=== PATIENT | male | born 1985 | race Caucasian/White ===

== ENCOUNTER 2017-02-07 14:00 | Inpatient (IN) | payer OTHER ==
--- NOTE | ~2017-02-07 | HP ---
Unit #: [id number] #: [id number] Patient: NELSY MORALES [id number] [place] [address] [id number] I MR#: [id number] NAME: NELSY MORALES ROOM: P204 Age: 31 Sex: M Admission Date: 02/07/2017 : 1985 Attending Physician: Tho Jarrell M.D. Admitting Physician: Tho Jarrell M.D. Primary Care Physician: Primary Care Physician No HISTORY AND PHYSICAL HISTORY OF PRESENT ILLNESS Nelsy is a 31 year old admitted to [address] [place] [address] because of his drug use which includes methamphetamines. PAST MEDICAL HISTORY 1. History of illicit substance abuse to include methamphetamine and heroin. 2. Asthma. PAST SURGICAL HISTORY Nothing reported ALLERGIES No known drug allergies. SOCIAL HISTORY He denies cigarettes and alcohol. Admits to a history of illicit substance abuse to include heroin, methamphetamine and occasional benzodiazepines. FAMILY HISTORY Medically noncontributory. REVIEW OF SYSTEMS CONSTITUTIONAL: No fever or chills. HEENT: Denies any sore throat, ear pain or runny nose. CARDIOVASCULAR: Denies chest pain, irregular heart rhythm or palpitations. CHEST: Denies shortness of breath or cough. No hemoptysis. GASTROINTESTINAL: Denies nausea, vomiting, diarrhea or chronic constipation. ENDOCRINE: Denies history of increased thirst or urination. No recent significant weight loss or gain. GENITOURINARY: Denies dysuria, frequency, or hematuria. SKIN: Denies any rashes. HEMATOLOGIC: Denies history of increased bleeding or bruising. MUSCULOSKELETAL: Denies any hot, swollen joints. No generalized muscle pain. NEUROLOGIC: Denies problems with vision or speech. No frequent, severe headaches. No numbness, tingling or weakness in any extremities. Denies loss of bladder or bowel control. CURRENT MEDICATIONS Unit #: [id number] #: [id number] Patient: NELSY MORALES No orders received at the time of this dictation. PHYSICAL EXAMINATION GENERAL: Alert, well-nourished, in no apparent distress. VITAL SIGNS: Blood pressure 128/66, heart rate 80, respirations 16, temperature 98.6. SKIN: Warm and dry without rash or lesion. HEENT: Normocephalic. TMs not viewed. Oral and nasal passages clear. Conjunctivae clear. Pupils equal, round and reactive to light and accommodation. Extraocular movements intact. NECK: Supple without lymphadenopathy or thyromegaly. HEART: Regular rate and rhythm without murmur. LUNGS: Clear. ABDOMEN: Soft, nontender. : Not done. EXTREMITIES: No evidence of cyanosis, clubbing or edema. Moves all extremities without focal deficit. NEUROLOGICAL: Grossly within normal limits. Cranial Nerves: II: Visual bello are intact. III, IV AND : Extraocular movements are intact. Pupils are equal, round and reactive to light. V: Facial sensation is grossly normal. VII: Facial movements and expression are normal. VIII: Auditory acuity grossly intact. IX, X: Uvula is midline. Phonation is normal. XI: Patient shrugs shoulders and turns head normally. XII: Tongue protrudes in the midline. Sensory and Motor Function: Sensory and motor sensation is grossly normal. Motor: moves all extremities well. Coordination: Gait is normal. Deep Tendon Reflexes: Intact. IMPRESSION Psychiatric admission RECOMMENDATIONS PSYCHIATRIC: Per psychiatrist. MEDICAL: I see no contraindications to participating in facility's activities. MEDICAL PROGNOSIS Good. MEDICAL CONDITION Stable. Dictated by... Juliet Sanders P.A.-C. for Jory Fontenot/daniel TD: 02/08/2017 03:25 JOB #: [id number] Unit #: [id number] #: [id number] Patient: NELSY MORALES HISTORY AND PHYSICAL Page 1 of 1 X Juliet Sanders HISTORY AND PHYSICAL
--- NOTE | ~2017-02-07 | DS ---
Unit #: [id number] #: [id number] Patient: NELSY MORALES [id number] [facility] [address] [place] [address] [id number] I MR#: [id number] NAME: NELSY MORALES ROOM: [facility] Age: 31 Sex: M Admission Date: 02/07/2017 : 1985 Discharge Date: 02/10/2017 Attending Physician: Tho Jarrell M.D. DISCHARGE SUMMARY REASON FOR ADMISSION The patient is a 32-year-old white male, admitted to the [address] [place] [address] unit with recurrent auditory hallucinations, related to his ongoing abuse of methamphetamine and cannabis. HOSPITAL COURSE The patient was admitted to the [address] [place] [address] unit and placed on suicide precautions. He was restarted on previously prescribed Seroquel 50 mg b.i.d. and 100 mg at h.s. and a course of Levaquin was ordered secondary to a history of an upper respiratory infection. By 02/10/2017, the patient was in brighter spirits. He denied any auditory or visual hallucinations, and exhibited no signs or symptoms of withdrawal. Discharge was ordered. 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 DISPOSITION ON DISCHARGE The patient is discharged on the following medications: Levaquin 500 mg daily x7 days for upper respiratory infection and Seroquel 50 mg b.i.d. and 100 mg at h.s. for psychosis. DISCHARGE INSTRUCTIONS No dietary or physical restrictions were placed on the patient at the time of discharge. FOLLOWUP Followup will take place through the auspices of community mental health resources. PROGNOSIS The patient's prognosis is considered fair. Dictated by... Tho Jarrell M.D. CB/dee TD: 02/10/2017 14:19 JOB #: [id number] Unit #: [id number] #: [id number] Patient: NELSY MORALES DISCHARGE SUMMARY Page 1 of 1 X Tho Jarrell MD X DISCHARGE SUMMARY
--- NOTE | ~2017-02-07 | PN ---
Unit #: [id number] #: [id number] Patient: NELSY MORALES [id number] [facility] [address] [place] [address] [id number] I MR#: [id number] NAME: NELSY MORALES ROOM: [facility] Age: 31 Sex: M Admission Date: 02/07/2017 : 1985 Attending Physician: Tho Jarrell M.D. Admitting Physician: Tho Jarrell M.D. Primary Care Physician: Primary Care Physician Denise MARTINEZ PROGRESS NOTES DATE 02/09/2017 DISCUSSION The patient is abed today, continuing to complain of significant symptoms of opioid withdrawal. He is expressing interest in residential chemical dependence treatment and is working with his social media developer regarding possible arrangements related thereto. Dictated by... Tho Jarrell M.D. CB/bzg TD: 02/09/2017 14:57 JOB #: [id number] JUAN PROGRESS NOTES Page 1 of 1 X Tho Jarrell MD X PROGRESS NOTE
--- NOTE | ~2017-02-07 | PA ---
Unit #: [id number] #: [id number] Patient: NELSY MORALES [id number] [facility] [address] [place] [address] [id number] I MR#: [id number] NAME: NELSY MORALES ROOM: P204 Age: 31 Sex: M Admission Date: 02/07/2017 : 1985 Date of Assessment: 02/08/2017 Attending Physician: Tho Jarrell M.D. Admitting Physician: Tho Jarrell M.D. Primary Care Physician: Primary Care Physician No PSYCHIATRIC ASSESSMENT IDENTIFYING INFORMATION The patient is a 31-year-old homeless white male, admitted in transfer from [facility] where he had presented voicing positive suicidal ideation and auditory hallucinations as well as methamphetamine and cannabis use. INFORMANT(S) Patient, patient reliability is fair. CHIEF COMPLAINT "Hearing voices man." HISTORY OF PRESENT ILLNESS The patient is a 31-year-old white male, admitted in transfer from [facility] where he had presented voicing positive auditory hallucinations, suicidal ideation, and abuse of methamphetamine and cannabis. The patient also reportedly had used heroin but his drug screen was not positive for opiates. The patient was last hospitalized at this facility in respectively similar circumstances in August 2016. At that time, he was prescribed Seroquel 50 mg twice daily and 100 mg at bedtime for mood stabilization, and psychosis. For a more complete history of present illness please refer to previously dictated notes. The patient, today, continues to endorse positive suicidal ideation and auditory hallucinations. PAST PSYCHIATRIC HISTORY Reviewed and no changes. PAST MEDICAL HISTORY Reviewed and no changes. MEDICATIONS None at this time. ALLERGIES None reported. FAMILY HISTORY Reviewed and no changes. 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 Unit #: [id number] #: [id number] Patient: NELSY MORALES MENTAL STATUS EXAM At this time reveals, the patient to be a well-developed, well-nourished white male, appearing his stated age. He is in no apparent physical distress at the time of the examination. He is awake, alert, and oriented in all spheres. His mood is dysphoric. His affect constricted. Speech is generally relevant and coherent. There are no gross deficits to memory or cognition noted. Intelligence is judged to be in the average range based on fund of knowledge. The patient is cooperative throughout the interview. He is currently endorsing positive suicidal ideation and he denies homicidal ideation. He reports positive auditory hallucinations of a command type. His judgment and insight appear to be mildly impaired. No signs of tardive dyskinesia are noted. ASSETS To be assessed. LIABILITIES Lack of resources, ongoing methamphetamine use. 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 Dysthymic disorder. Cannabis use disorder. TREATMENT PLAN The patient remains hospitalized for safety and stabilization. I will restart the previously prescribed Seroquel but I have spoken to the patient at some length today regarding the fact that his auditory hallucinations are due to his ongoing abuse of methamphetamine and are not related to any schizophrenic or other psychotic illness. The patient will participate in appropriate murray and milieu activities at this point, no detox protocol is in place as the patient was urine drug screen was negative for opiates at the time of admission. ESTIMATED LENGTH OF STAY [id number] days. Dictated by... Tho Jarrell M.D. DULCE/trisha TD: 02/08/2017 11:55 JOB #: [id number] Unit #: [id number] #: [id number] Patient: NELSY MORALES PSYCHIATRIC ASSESSMENT Page 1 of 1 X Tho Jarrell MD X PSYCHIATRIC ASSESSMENT
[2017-02-08 09:31] LABS: BASOPHIL% 0.3 % (0-2.5); EOSINOPHIL# 0.2 X10e3 (0-0.7); EOSINOPHIL% 2.9 % (0.0-7.0); HEMATOCRIT 44.7 % (38.0-50.0); HEMOGLOBIN 14.8 gm/dL (13.0-16.0); LYMPHOCYTE# 2.2 X10e3 (1.0-3.5); LYMPHOCYTE% 37.2 % (17.0-45.0); MEAN CELL VOLUME 92.5 FL (83-96); MEAN CORPUSCULAR HEMOGLOBIN 30.6 PG (28-34); MEAN CORPUSCULAR HGB CONC 33.1 g/dL (30-36); MEAN PLATELET VOLUME 9.1 FL (6.5-11.5); MONOCYTE# 0.5 X10e3 (0-1.0); MONOCYTE% 8.6 % (3.0-12.0); PLATELET COUNT 221 X10e3 (140-420); RED BLOOD COUNT 4.83 X10e (3.90-5.60)
[2017-02-08 09:44] LABS: DIFF IND NO
[2017-02-08 09:52] LABS: ALBUMIN SERUM 3.7 g/dL (3.5-5.0); BILIRUBIN,TOTAL 0.6 mg/dL (0.2-2.0); BUN/CREATININE RATIO 21.25; CALCIUM SERUM 9.1 mg/dL (8.4-10.2); CREATININE SERUM 0.8 mg/dL (0.6-1.4); GLOM FILT RATE Estimated 118.2 mL/min (>60); POTASSIUM 4.5 mmol/L (3.5-5.1); PROTEIN TOTAL SERUM 6.3 g/dL (6.0-8.3)
== END 2017-02-10 15:10 | disposition home or self-care (01) | DRG 897 ==
LOC: P2S 16:25
PROVIDERS: Specialist
DX: F15.129 Other stimulant abuse with intoxication, unspecified (principal); F15.151 Other stimulant abuse with stimulant-induced psychotic disorder with hallucinations; J06.9 Acute upper respiratory infection, unspecified; F34.1 Dysthymic disorder
CPT/HCPCS: 80053; 85025